=== PATIENT | female | born 1980 | race Caucasian/White ===

== ENCOUNTER 2017-04-15 12:11 | Emergency (ER) | payer SELFPAY ==
[~2017-04-15] VITALS: Ht 160 cm; Wt 94.0 kg
[~2017-04-15 12:11] MED LIST: DULO60CA7 PO; LAMO100T PO; ZOLP10TA PO; [UNRECOGNIZED DRUG - OTHER] PO
[2017-04-15 12:12] VITALS: BP 121/84
== END 2017-04-15 13:15 | disposition home or self-care (01) ==
LOC: ED 12:49
DX: S66.911A Strain of unspecified muscle, fascia and tendon at wrist and hand level, right hand, initial encounter (principal); S93.502A Unspecified sprain of left great toe, initial encounter; W10.9XXA Fall (on) (from) unspecified stairs and steps, initial encounter; Y93.89 Activity, other specified; Y99.8 Other external cause status; Y92.009 Unspecified place in unspecified non-institutional (private) residence as the place of occurrence of the external cause
CPT/HCPCS: 29130; 99284